=== PATIENT | male | born 1955 | race Hispanic/Latino ===

== ENCOUNTER 2017-10-07 16:39 | Inpatient (IN) | payer SELFPAY ==
[2017-10-07 18:34] LABS: Absolute Lymphocytes (CBC) 1.4 K/uL (0.7-4.9); Absolute Monocytes 0.9 K/uL (0.1-1.3); Absolute Neutrophil 14.5 K/uL (1.8-8.0); Basophils % 0.4 % (0-1.3); Eosinophils % 0.1 % (0-4.4); Hematocrit 40.1 % (39.6-49.0); Lymphocytes % 8.3 % (15.3-44.8); MCH 32.6 pg (27.0-35.0); MCV 92.7 fL (80-100); MPV 10.3 fL (7.6-11.3); Monocytes % 5.1 % (3.3-12.3); RBC Red Blood Cell Count 4.32 M/uL (4.33-5.43)
[2017-10-07 18:42] LABS: Potassium 4.1 mEq/L (3.6-5.0)
[2017-10-07 18:45] LABS: Albumin 4.3 g/dL (3.2-5.5); Bilirubin Total 2.6 mg/dL (0.3-1.2); Protein, Total 7.1 g/dL (6.0-8.3)
[2017-10-07] MEDS ORDERED: NACHLORIDE 0.45% 1,000 ML IV SCH (19:00)
[2017-10-07 19:51] LABS: Blood Morphology Comment NOT SEEN (NOT SEEN); Platelet Estimate ADEQ
[2017-10-07] MEDS: NACHLORIDE 0.45% 1,000 ML IV SCH (20:14)
--- NOTE | 2017-10-07 21:03 | RAD REPORT ---
EXAM DESCRIPTION: CT - Abdomen Pelvis W Contrast - 10/07/2017 8:42 pm CLINICAL HISTORY: Left lower quadrant pain COMPARISON: None. TECHNIQUE: Biphasic, helical CT imaging of the abdomen and pelvis was performed following 100 ml non -ionic IV contrast. Oral contrast was given. All CT scans are performed using dose optimization technique as appropriate and may include automated exposure control or mA/KV adjustment according to patient size. FINDINGS: No suspicious findings in the lung bases. The liver, spleen, and pancreas show no suspicious findings. Liver shows mild fatty infiltration glory michael. No gallbladder or biliary tree abnormality. Symmetric renal function is seen with no hydronephrosis or suspicious renal mass. No pyelonephritis o r acute renal parenchymal process. No urinary bladder abnormality. No gastric dilatation or gastric wall thickening. No acute small bowel finding. Appendix is normal. F rom cecum through descending colon there is no acute finding. Mild diverticulosis in the descending c olon. Proximal sigmoid colon shows 8 centimeter long segment of circumferential wall thickening. Ther e is stranding and fluid in the adjacent fat. Patient has prominent diverticulosis in the sigmoid col on. Distal sigmoid shows wall thickening. Rectum is unremarkable. No extraluminal free air. No absces s identifiable at this time. No other inflammatory stranding. No free air or pneumatosis. No mass or bulky lymphadenopathy. Pat ient has fat filled bilateral inguinal hernias and a very small umbilical hernia. Delete select No ad renal abnormality. No suspicious bony findings. IMPRESSION: Moderate severity acute diverticulitis in the proximal sigmoid colon. There is adjacent fluid in stranding but no abscess, free air or surgically emergent finding. Fatty infiltration of the liver.
[2017-10-07] MEDS: METRONIDAZOLE 500mg IVPB 500 MG/100 ML BAG IV SCH (22:45)
[2017-10-08] MEDS: CIPROFLOXACIN 400mg IV 400 MG/200 ML BAG IV SCH ×3 (00:09→21:27)
[2017-10-08] MEDS: METRONIDAZOLE 500mg IVPB 500 MG/100 ML BAG IV SCH ×3 (00:22→16:44)
[2017-10-08 00:25] LABS: Urine Appearance CLEAR; Urine Bilirubin NEGATIVE (NEG); Urine Blood NEGATIVE (NEG); Urine Color YELLOW; Urine Glucose NEGATIVE (NEG); Urine Protein NEGATIVE (NEG); Urine Specific Gravity >=1.030 (1.005-1.030)
[2017-10-08 00:30] LABS: Urine Microscopic Reflex NO UMIC
[2017-10-08] MEDS: NACHLORIDE 0.45% 1,000 ML IV SCH ×3 (06:05→21:00)
[2017-10-08] MEDS: ACETAMINOPHEN 500 MG TAB PO PRN (18:36)
--- NOTE | 2017-10-08 20:21 | HP ---
Date of Admission: 10/07/2017 Chief Complaint: Left lower quadrant pain. History Of Present Illness: A 62-year-old male was brought to the office for the first time with lef t lower quadrant pain. He was examined, and he was found to have moderate to severe tenderness in th e left lower quadrant with normal urine analysis. At this point, a diagnosis of possible diverticuli tis was made. The patient was admitted. After admission, the patient had a CT scan of the abdomen, which confirmed his diverticulitis. The patient was started on IV antibiotics. Past Medical History: The patient does not have prior history of diabetes, hypertension, or other ch ronic illness. Family History: Noncontributory. Personal History: No known allergies. Home Medicines: None. Review of Systems: No chest pain. Physical Examination: General: Revealed, 62-year-old male in moderate pain. Afebrile. HEENT: Otherwise, negative. Neck: Supple. JVD negative. Chest: Clear. Heart: Regular. Abdomen: Tender left lower quadrant. No palpable mass. Extremities: No edema. Laboratory Data: White count elevated to 16.8. Chem profile normal, except for bilirubin of 2.6. CT scan of the abdomen, evidence of sigmoid diverticulitis. Assessment: 1.Moderate to severe acute diverticulitis. 2.Fatty liver on the CAT scan with elevated bilirubin. 3.Obesity. Plan: IV Cipro, IV Flagyl. Followup CBC. DARIN/LISS Voice ID: [id number]
[2017-10-09] MEDS: METRONIDAZOLE 500mg IVPB 500 MG/100 ML BAG IV SCH ×3 (01:06→17:00)
[2017-10-09] MEDS: ACETAMINOPHEN 500 MG TAB PO PRN ×2 (01:11→20:30)
[2017-10-09] MEDS: NACHLORIDE 0.45% 1,000 ML IV SCH ×3 (03:15→20:37)
[2017-10-09 04:42] LABS: Absolute Lymphocytes (CBC) 1.5 K/uL (0.7-4.9); Absolute Neutrophil 12.7 K/uL (1.8-8.0); Basophils % 0.5 % (0-1.3); Eosinophils % 0.3 % (0-4.4); Lymphocytes % 9.6 % (15.3-44.8); MCH 32.3 pg (27.0-35.0); MCV 93.4 fL (80-100); Monocytes % 6.4 % (3.3-12.3); RBC Red Blood Cell Count 4.07 M/uL (4.33-5.43)
[2017-10-09] MEDS: CIPROFLOXACIN 400mg IV 400 MG/200 ML BAG IV SCH ×2 (09:18→20:30)
[2017-10-10] MEDS: METRONIDAZOLE 500mg IVPB 500 MG/100 ML BAG IV SCH ×2 (00:27→08:34)
--- NOTE | 2017-10-10 01:53 | PN ---
The patient is doing better. However, he still has considerable tenderness in the left lower quadran t. In view of that, he will be continued on IV antibiotic for another 24 hours, and another CBC will be done tomorrow; at which point, it will be decided as to whether he can go on oral antibiotics. DARIN/LISS Voice ID: [id number] Report ID: [id number]
[2017-10-10] MEDS: ACETAMINOPHEN 500 MG TAB PO PRN (04:28)
[2017-10-10] MEDS: NACHLORIDE 0.45% 1,000 ML IV SCH (05:50)
[2017-10-10 06:19] LABS: Absolute Monocytes 0.8 K/uL (0.1-1.3); Absolute Neutrophil 10.9 K/uL (1.8-8.0); Basophils % 0.2 % (0-1.3); Eosinophils % 0.7 % (0-4.4); Hematocrit 37.7 % (39.6-49.0); MCH 32.8 pg (27.0-35.0); MCV 92.5 fL (80-100); MPV 10.2 fL (7.6-11.3); Monocytes % 6.4 % (3.3-12.3); RBC Red Blood Cell Count 4.08 M/uL (4.33-5.43)
[2017-10-10] MEDS: CIPROFLOXACIN 400mg IV 400 MG/200 ML BAG IV SCH (08:34)
== END 2017-10-10 09:01 | disposition home or self-care (01) | DRG 392 ==
LOC: 4TH 17:51 → OBSVTOIN 10-08 14:50
PROVIDERS: ADMIT Internal Medicine; ATTEND Internal Medicine
DX: K57.92 Diverticulitis of intestine, part unspecified, without perforation or abscess without bleeding (principal); K76.0 Fatty (change of) liver, not elsewhere classified; E66.9 Obesity, unspecified; Z68.31 Body mass index [BMI] 31.0-31.9, adult
CPT/HCPCS: 36415; 74177; 80053; 81003; 82962; 85025; G0378; J0744; Q9967

== ENCOUNTER 2019-05-05 10:36 | Inpatient (IN) | payer SELFPAY ==
[2019-05-05] MEDS: NACHLORIDE 0.45% 1,000 ML IV SCH (11:55)
[2019-05-05] MEDS: CIPROFLOXACIN 400mg IV 400 MG/200 ML BAG IV SCH ×2 (11:55→22:38)
[2019-05-05 12:21] VITALS: BMI 32.3
[2019-05-05 13:07] LABS: Albumin 3.4 g/dL (3.4-5.0); Bilirubin Total 3.1 mg/dL (0.2-1.0); Protein, Total 6.8 g/dL (6.4-8.2)
[2019-05-05 13:14] LABS: Absolute Lymphocytes (CBC) 0.9 K/uL (0.7-4.9); Basophils % 0.3 % (0-1.3); Hematocrit 36.7 % (39.6-49.0); Lymphocytes % 5.3 % (15.3-44.8); MPV 9.8 fL (7.6-11.3); RBC Red Blood Cell Count 3.98 M/uL (4.33-5.43)
[2019-05-05 13:35] LABS: Blood Morphology Comment NOT SEEN (NOT SEEN); Platelet Estimate ADEQ; Urine White Blood Cell Casts OK
[2019-05-05 14:28] LABS: Urine Appearance TURBID; Urine Blood NEGATIVE (NEG); Urine Color ORANGE; Urine Glucose NEGATIVE (NEG); Urine Protein 1+ (NEG); Urine Specific Gravity >=1.030 (1.005-1.030); Urine Urobilinogen >=8.0 mg/dL (0.2-1.0)
[2019-05-05 14:30] LABS: Urine Microscopic Reflex ORDER UMIC
--- NOTE | 2019-05-05 14:50 | RAD REPORT ---
EXAM DESCRIPTION: CTAbdomen Pelvis W Contrast - 05/05/2019 2:37 pm CLINICAL HISTORY: Abdominal pain. ABD PAIN COMPARISON: Abdomen Pelvis W Contrast dated 10/07/2017 TECHNIQUE: Biphasic CT imaging of the abdomen and pelvis was performed with 100 ml non-ionic IV cont rast. All CT scans are performed using dose optimization technique as appropriate and may include automated exposure control or mA/KV adjustment according to patient size. FINDINGS: The lung bases are clear. Mild diffuse fatty liver. The spleen, pancreas, adrenal glands and kidneys are within normal limits. There is quite significant inflammation surrounding the distal descending colon and proximal Lewis si gmoid colon where multiple diverticular present compatible with moderate to severe acute diverticulit is. Multiple extraluminal air bubbles are present in the left lower quadrant with air bubbles extendi ng into the upper abdominal fat. No well-formed peridiverticular abscess is seen. No evidence of veno us thrombosis. The appendix is normal. No bowel obstruction. Small bilateral fat containing inguinal hernias. No suspicious bony findings. IMPRESSION: Moderately severe acute diverticulitis involving the sigmoid colon. No abscess is eviden t. Extraluminal air is present in the left lower quadrant with numerous small air bubbles in the uppe r abdominal fat as well. Fatty liver.
[2019-05-05 15:16] LABS: Urine Bilirubin 2+ (NEG)
[2019-05-05 15:17] LABS: Urine Bacteria <20 /HPF (NONE SEEN); Urine Culture Reflex Order NOT NEEDED; Urine Mucus HEAVY /HPF (NONE SEEN); Urine RBC <5 /HPF (NONE SEEN)
[2019-05-05] MEDS: METRONIDAZOLE 500mg IVPB 500 MG/100 ML BAG IV SCH (17:42)
[2019-05-06] MEDS: METRONIDAZOLE 500mg IVPB 500 MG/100 ML BAG IV SCH ×4 (00:55→17:06)
[2019-05-06] MEDS: NACHLORIDE 0.45% 1,000 ML IV SCH ×3 (04:00→12:00)
[2019-05-06 08:01] LABS: Basophils % 0.4 % (0-1.3); Hematocrit 35.5 % (39.6-49.0); Lymphocytes % 8.4 % (15.3-44.8); MPV 10.2 fL (7.6-11.3); RBC Red Blood Cell Count 3.81 M/uL (4.33-5.43)
[2019-05-06] MEDS: CIPROFLOXACIN 400mg IV 400 MG/200 ML BAG IV SCH ×2 (08:20→21:51)
[2019-05-07] MEDS: NACHLORIDE 0.45% 1,000 ML IV SCH ×3 (00:06→15:18)
[2019-05-07] MEDS: METRONIDAZOLE 500mg IVPB 500 MG/100 ML BAG IV SCH ×5 (00:07→23:04)
--- NOTE | 2019-05-07 04:28 | HP ---
Date of Admission: 05/05/2019 Chief Complaint: Left lower quadrant pain. History Of Present Illness: A 63-year-old male who had prior history of diverticulitis, who was brou ght to the office with lower abdominal pain. He had severe tenderness in the left lower quadrant wit h clinical diagnosis of diverticulitis, the patient is admitted. Past Medical History: Positive for diverticulitis, psoriasis. Family History: Noncontributory. Allergies: NO KNOWN ALLERGIES. Home Medications: None. Review of Systems: No chest pain. Physical Examination: General: Revealed 63-year-old male in moderate pain. Vital Signs: Temperature 99, blood pressure 118/59. HEENT: Negative. Neck: Supple. JVD negative. Chest: Clear. Heart: Regular. Abdomen: Tender left lower quadrant. No palpable mass. Bowel sounds present. Extremities: Multiple areas of psoriasis noted. Laboratory Data: White count 17,000. CAT scan, [id number] sigmoid diverticulitis. Plan: IV Cipro, Flagyl, IV fluids. DARIN/LISS Voice ID: [id number]
[2019-05-07] MEDS: CIPROFLOXACIN 400mg IV 400 MG/200 ML BAG IV SCH ×2 (08:32→20:27)
[2019-05-08] MEDS: METRONIDAZOLE 500mg IVPB 500 MG/100 ML BAG IV SCH (05:16)
[2019-05-08] MEDS: NACHLORIDE 0.45% 1,000 ML IV SCH (05:16)
[2019-05-08 08:20] VITALS: BP 125/57; TEMP 98.2
[2019-05-08] MEDS: CIPROFLOXACIN 400mg IV 400 MG/200 ML BAG IV SCH (08:28)
[2019-05-08 11:47] VITALS: O2SAT 96
== END 2019-05-08 10:10 | disposition home or self-care (01) | DRG 392 ==
LOC: 4TH 11:16
PROVIDERS: ADMIT Internal Medicine; ATTEND Internal Medicine
DX: K57.32 Diverticulitis of large intestine without perforation or abscess without bleeding (principal)
CPT/HCPCS: 36415; 74177; 80053; 81003; 81015; 83690; 85025; J0744; Q9967